=== PATIENT | male | born 1990 | race Caucasian/White ===

== ENCOUNTER 2021-05-31 04:39 | Emergency (ER) | payer MEDICAID | END 2021-05-31 07:17 | disposition left against medical advice (07) | LOC: ER 04:39 | DX: T16.2XXA Foreign body in left ear, initial encounter (principal); T16.1XXA Foreign body in right ear, initial encounter; Z72.89 Other problems related to lifestyle; Z59.00 Homelessness unspecified; X58.XXXA Exposure to other specified factors, initial encounter; Y93.89 Activity, other specified; Y92.89 Other specified places as the place of occurrence of the external cause; Y99.8 Other external cause status | CPT/HCPCS: 99281 ==

== ENCOUNTER 2021-06-14 08:22 | Emergency (ER) | payer MEDICAID ==
[~2021-06-14] VITALS: Ht 172.7 cm; Wt 65.2 kg
[2021-06-14 11:08] LABS: BASOPHILS # (AUTO) 0.1 X10'3 (0-0.2); BASOPHILS % (AUTO) 0.7 % (0-1); EOSINOPHILS # (AUTO) 0.3 X10'3 (0-0.9); EOSINOPHILS % (AUTO) 3.2 % (0-6); HEMATOCRIT 41.5 % (42.0-52.0); LYMPHOCYTES # (AUTO) 2.5 X10'3 (1.1-4.8); LYMPHOCYTES % (AUTO) 30.5 % (21-51); MEAN CORPUSCULAR HEMOGLOBIN 29.7 PG (27.0-31.0); MEAN CORPUSCULAR HGB CONC 33.8 g/dL (33.0-36.5); MEAN CORPUSCULAR VOLUME 87.9 FL (78-98); MEAN PLATELET VOLUME 7.7 FL (7.4-10.4); MONOCYTES % (AUTO) 12.3 % (2-12); NEUTROPHILS # (AUTO) 4.4 X10'3 (1.8-7.7); NEUTROPHILS % (AUTO) 53.3 % (42-75); PLATELET COUNT 227 X10'3 (140-440); RED BLOOD COUNT 4.73 X10'6 (4.70-6.10); RED CELL DISTRIBUTION WIDTH 13.9 % (11.5-14.5); WHITE BLOOD COUNT 8.2 X10'3 (4.5-11.0)
[2021-06-14 11:20] LABS: ALANINE AMINOTRANSFERASE 28 U/L (12-78); ALBUMIN 4.5 G/DL (3.4-5.0); ALBUMIN/GLOBULIN RATIO 1.6 (1.1-1.5); ALKALINE PHOSPHATASE 83 IU/L (46-116); ANION GAP 9 (8-16); ASPARTATE AMINO TRANSFERASE 18 U/L (10-37); BILIRUBIN,TOTAL 0.7 MG/DL (0.1-1.0); BLOOD UREA NITROGEN 12 MG/DL (7-18); CHLORIDE 104 MMOL/L (99-107); GLUCOSE 97 MG/DL (70-104); POTASSIUM 3.6 MMOL/L (3.5-5.1); SODIUM 141 MMOL/L (135-145); TOTAL CARBON DIOXIDE 27.6 MMOL/L (24-32); TOTAL PROTEIN 7.4 G/DL (6.4-8.2); eGFR > 90 ML/MIN
[2021-06-14 11:21] LABS: URINE AMPHETAMINE SCREEN POSITIVE (Neg); URINE BARBITUATE SCREEN NEGATIVE (Neg); URINE BENZODIAZEPINES SCREEN NEGATIVE (Neg); URINE CANNABINOID SCREEN POSITIVE (Neg); URINE COCAINE SCREEN NEGATIVE (Neg); URINE METHADONE SCREEN NEGATIVE (Neg); URINE OPIATE SCREEN NEGATIVE (Neg); URINE PHENCYCLIDINE SCREEN NEGATIVE (Neg)
--- NOTE | 2021-06-14 12:06 | NUR ---
packet sent to [facility]
[2021-06-14] MEDS ORDERED: NO HOME MEDS (13:00)
--- NOTE | 2021-06-14 13:02 | NUR ---
The patient moved to bed 24 from the main ER. He was very cooperative with the nursing assessment. 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 He denies having thoughts to harm himself or others. He denies ever being diagnoised with a mental illness. He takes no psychiatric medications. He stated that he lives a transient life style traveling the country. He stated that he has beeb staying at the [facility] at times. He readily admits to polysubstance abuse. His drug screen was positive for amphetamines. He reports also using THC and occassional ETOH
--- NOTE | 2021-06-14 15:01 | NUR ---
The patient is laying quietly on his bed.
--- NOTE | 2021-06-14 15:45 | NUR ---
The patient is resting on his bed.
--- NOTE | 2021-06-14 16:12 | NUR ---
[facility] is at the bedside and interviewing the patient
--- NOTE | 2021-06-14 17:27 | NUR ---
The patient is getting louder and agitated about delusional themes.
--- NOTE | 2021-06-14 17:27 | NUR ---
Discussed symptoms with Dr. Bill and orders received.
[2021-06-14] MEDS ORDERED: OLANZapine 2.5MG tablet PO ONE (17:30)
--- NOTE | 2021-06-14 19:07 | NUR ---
PATIENT IS RESTING QUIETLY, LOW FOWLERS IN BED.
--- NOTE | 2021-06-14 20:50 | NUR ---
PATIENT IS SLEEPING QUIETLY ON HIS LEFT SIDE. NO DISTRESS. IN DIRECT VIEW FROM THE NURSES STATION.
--- NOTE | 2021-06-14 22:12 | NUR ---
PATIENT SLEEPING QUIETLY IN A SUPINE POSITION. NO DISTRESS NOTED.
--- NOTE | 2021-06-14 23:30 | NUR ---
PATIENT AWOKE, SOME ANXIETY SECONDARY TO ANOTHER PATIENT MAKING NOISE AND SCREAMING.
--- NOTE | 2021-06-15 01:38 | NUR ---
PATIENT IS SLEEPING IN A SUPINE POSITION. NO DISTRESS.
--- NOTE | 2021-06-15 02:34 | NUR ---
PATIENT SLEEPS QUIETLY. HE SELF REPOSITIONS.
--- NOTE | 2021-06-15 03:47 | NUR ---
PATIENT SLEEPING, NO DISTRESS.
--- NOTE | 2021-06-15 04:51 | NUR ---
PATIENT SLEEPING, IN VIEW FROM NURSES STATION.
--- NOTE | 2021-06-15 05:35 | NUR ---
PATIENT HAS REPOSITIONED ON HIS RIGHT SIDE. HE IS ASLEEP.
--- NOTE | 2021-06-15 07:27 | NUR ---
Patient sleeping in bed on left side. Respirations are even and unlabored.
--- NOTE | 2021-06-15 08:15 | NUR ---
Patient is eating breakfast.
--- NOTE | 2021-06-15 08:57 | NUR ---
Met with patient in regards to substance use and to see if patient was interested in treatment options. Patient would like to go to inpatient rehab. I gave patient [facility] number to start process and my business card in case he has any questions.
--- NOTE | 2021-06-15 08:59 | NUR ---
Elyse from [facility] here to evaluate patient.
--- NOTE | 2021-06-15 09:23 | NUR ---
Patient refused to go into a treatment center, patient will be discharged.
[2021-06-15 09:29] VITALS: BP 94/59
== END 2021-06-15 09:40 | disposition home or self-care (01) ==
LOC: ER 08:23
DX: F20.9 Schizophrenia, unspecified (principal); F17.210 Nicotine dependence, cigarettes, uncomplicated; Z59.00 Homelessness unspecified; Z20.822 Contact with and (suspected) exposure to COVID-19
CPT/HCPCS: 36415; 80053; 80305; 84443; 85025; 87635; 99285; C9803

== ENCOUNTER 2021-06-18 22:07 | Emergency (ER) | payer MEDICAID ==
[~2021-06-18] VITALS: Ht 172.7 cm; Wt 68.2 kg
[~2021-06-18 22:07] MED LIST: NO HOME MEDS
[2021-06-18 23:04] VITALS: BP 104/60
== END 2021-06-18 23:11 | disposition home or self-care (01) ==
LOC: ER 22:08
DX: Z13.89 Encounter for screening for other disorder (principal); R56.9 Unspecified convulsions; F20.9 Schizophrenia, unspecified; F12.90 Cannabis use, unspecified, uncomplicated; F15.90 Other stimulant use, unspecified, uncomplicated; Z72.89 Other problems related to lifestyle; Z59.00 Homelessness unspecified
CPT/HCPCS: 99281